=== PATIENT | female | born 1990 | race Caucasian/White ===

== ENCOUNTER 2017-09-25 06:12 | Inpatient (IN) | payer OTHER ==
[2017-09-25] VITALS (84 sets, daily range): BP systolic 78–143; BP diastolic 35–88; PULSE 69–125; RESP 0–20; TEMP 97.7–100.4
[~2017-09-25] VITALS: Ht 162.6 cm; Wt 93.0 kg
[2017-09-25] MEDS ORDERED: PRENTAB7 (07:34)
[2017-09-25] MEDS ORDERED: OXYTOCIN 30 UNITS/NS 500ML PREMIX IV SCH (07:45)
[2017-09-25 08:05] LABS: AUTOMATED NEUTROPHIL # 6.3 TH/MM3 (1.8-7.7); BASOPHIL % 0.3 % (0.0-2.0); EOSINOPHIL # 0.1 TH/MM3 (0-0.4); EOSINOPHIL % 0.9 % (0.0-4.0); HEMATOCRIT 36.5 % (35.0-46.0); HEMO FLAGS DIFF FINAL; LYMPH % 20.3 % (9.0-44.0); LYMPHOCYTE # 1.8 TH/MM3 (1.0-4.8); MEAN CELL VOLUME 91.4 FL (80.0-100.0); MEAN CORPUSCULAR HEMOGLOBIN 30.9 PG (27.0-34.0); MEAN CORPUSCULAR HGB CONC 33.8 % (32.0-36.0); MONO % 7.9 % (0.0-8.0); NEUT % 70.6 % (16.0-70.0); PLATELET COUNT 254 TH/MM3 (150-450); RED BLOOD COUNT 3.99 MIL/MM3 (4.00-5.30); WHITE BLOOD COUNT 8.9 TH/MM3 (4.0-11.0)
[2017-09-25 08:11] LABS: BACTERIA, URINE OCC /hpf; BLOOD, URINE NEG (NEG); CALCIUM OXALATE CRYSTALS,URINE MOD /hpf; GLUCOSE,URINE NEG (NEG); HYALINE CAST, URINE 3 /lpf (RARE); KETONE, URINE TRACE mg/dL (NEG); MUCUS URINE FEW /lpf (OCC); NITRITE,URINE NEG (NEG); PH, URINE 5.5 (5.0-8.5); SQUAMOUS EPITHELIAL CELL URINE 4 /hpf (0-5); URINE COLOR YELLOW (YELLW/STRAW)
[2017-09-25 08:12] LABS: COMMENT (UR) CULT NOT INDICATED; CULTURE IF INDICATED CULT NOT INDICATED
[2017-09-25] MEDS ORDERED: LACTATED RINGER'S 1000 ML BOLUS IV PRN (08:30)
[2017-09-25] MEDS ORDERED: LIDOCAINE HCL 1% 50 ML VIAL INFIL PRN (08:30)
[2017-09-25] MEDS ORDERED: ONDANSETRON HCL 4 MG/2 ML VIAL IV PUSH PRN (08:30)
[2017-09-25] MEDS ORDERED: NS 500 ML BOLUS IV PRN (08:30)
[2017-09-25] MEDS ORDERED: LACTATED RINGER'S 1000 ML IV SCH (08:30)
[2017-09-25] MEDS ORDERED: LIDOCAINE HCL 1% 50 ML VIAL I-DERMAL PRN (08:30)
[2017-09-25] MEDS ORDERED: OXYTOCIN 30 UNITS 500ML PREMIX IV ONE (08:30)
[2017-09-25] MEDS ORDERED: NS 1000 ML IV PRN (08:30)
[2017-09-25] MEDS ORDERED: MINERAL OIL 10 ML VIAL TOPICAL PRN (08:30)
[2017-09-25] MEDS ORDERED: CITRIC ACID-SODIUM CITRATE LIQ 30 ML UDC PO SCH (08:30)
--- NOTE | 2017-09-25 08:42 | PD.LABORPN ---
Subjective Subjective pt comfortable Objective Vital Signs Vital Signs Date Time Temp Pulse Resp B/P (MAP) Pulse Ox O2 Delivery O2 Flow Rate FiO2 09/25/17 06:45 90 122/71 (88) Objective Pelvic Exam: Cervix: [-] Dilatation: [-] 4 Effacement: [-] 70 Station: [-] -1 Presentation: [-] Membranes: [intact or ruptured] arom clear Uterine Contractions: [-] FHT's: Category: [-] 1 Baseline: [-] Reactive: [-] R Variability: [-] Decels: [-] Weeks Gestation: 39 Gest Age Assessed Date: Sep 25, 2017 Gest Age Assessed Time: 08:40 Pt started active labor?: No Medical induction of labor?: Yes Medical induction start date: Sep 25, 2017 Medical induction start time: 08:40 Artificial rupture of membrane: Yes Artificial ROM date: Sep 25, 2017 Artifical ROM time: 08:41 Assessment/Plan Problem List: (1) state, incidental ICD Codes: Z33.1 - state, incidental Assessment and Plan P0 at 39wks, for IOL, favorable cervix s/p arom clear, start pit, epid prn anticipate Shiloh Stiles MD Sep 25, 2017 08:41
[2017-09-25] MEDS ORDERED: fentaNYL 2MCG-BUPIV 0.125% INJ 100 ML ONE (10:18)
[2017-09-25] MEDS ORDERED: ePHEDrine/NS 25 MG/5 ML SYRINGE ONE ×2 (10:19→12:10)
--- NOTE | 2017-09-25 14:55 | MH ---
cc: RAMA AMADO DATE OF ADMISSION: 09/25/2017 REASON FOR ADMISSION 39-weeks with favorable cervix for artificial rupture of membranes and induction as needed. HISTORY OF PRESENT CONDITION The patient is a 26-year-old white female, 1, para 0 with LMP 12/26 and EDC 10/02/2017, who will be 39 weeks on September 25. Her care has been unremarkable. She has had no hypertension, diabetes or labor. Her booking blood pressure was 110/68 and it was 140/78 this last visit. She is 4 cm, 80% and minus one station. She has no chronic or systemic illnesses. She does not smoke, drink or use illicit drugs. Her blood type is A+. Her hemoglobin was 12.2. Her Pap smear was normal. She is immune to [place] measles and chickenpox. Serology was negative and hep C specifically was negative and thyroid is normal. Her 28-week sugar test was 66 and her Group B strep was negative. FAMILY HISTORY Noncontributory. PHYSICAL EXAMINATION GENERAL: She is a well-developed, well-nourished white female in no acute distress. VITAL SIGNS: Afebrile. Stable vital signs. 140/78. Weight 209. Urine dip negative. NECK: She has no thyroid enlargement. LUNGS: Lungs are clear. HEART: Heart is regular. PELVIC: Fundus is term. Estimated weight is 7-1/2 pounds. She has no CVA tenderness. The perineum is estrogenized. The cervix is 4 cm, 80% zero station. Estimated weight is 7 pounds. Pelvis is clinically adequate. EXTREMITIES: Unremarkable. IMPRESSION Term intrauterine with a good Edward score, desirous of labor and delivery prior to the holiday. She has been appraised of the benefits of natural initiation of labor versus induction, risks, benefits and alternative, she is comfortable with her choice and has decided to proceed on Monday at [place]. Rama Amado MD PPC/TLL /2:35 PM /2:49 PM
[2017-09-25] MEDS ORDERED: NO SYSTEM NARCOTICS PRN (15:00)
[2017-09-25] MEDS ORDERED: DO NOT ADMINISTER ANTICOAGULANTS PRN (15:00)
[2017-09-25] MEDS ORDERED: fentaNYL 2MCG-BUPIV 0.125% 100 ML EPIDURAL SCH (15:00)
[2017-09-25] MEDS ORDERED: MEASLES, MUMPS, RUBELLA VACCINE 0.5 ML VIAL SQ ONE (16:00)
[2017-09-25] MEDS ORDERED: DIPHTH/TETANUS/ACEL PERTUSSIS (BOOSTER) 0.5 ML VIAL/PFS IM ONE (16:00)
--- NOTE | 2017-09-25 18:41 | PD.OB.DELI ---
Weeks gestation: 39 Gest age assessed date: Sep 25, 2017 Gest age assessed time: 08:40 Pt started active labor?: No Medical induction of labor?: Yes Medical induction start date: Sep 25, 2017 Medical induction start time: 08:40 Artificial rupture of membrane: Yes Artificial ROM date: Sep 25, 2017 Artifical ROM time: 08:41 Anesthesia: Epidural, Lidocaine local to perineum Episiotomy: None Vaginal Delivery: Normal, Spontaneous Presentation: Occiput anterior Nuchal Cord: x1 (tight, unable to deliver through, double clamped and cut at perineum prior to delivery of baby) Delayed cord clamping (45 sec): No : Female, Single Delivery date: Sep 25, 2017 Delivery time: 18:18 One Minute : 8 Five Minute : 9 Weight: 3130 Placenta: Spontaneous delivery, Intact Laceration: Vaginal laceration Repair: Vicryl running Estimated blood loss: 250 Additional Information I was called to bedside for 10/100/+3 and voicemail/text left for Dr. Stiles. We began pushing. Dr. Stiles called and en route. She arrived after delivery of placenta just before repair was performed. Taylor Garcia MD Sep 25, 2017 18:41
[2017-09-25] MEDS ORDERED: OXYTOCIN 30 UNITS-500ML PREMIX 500 ML IV SCH (18:45)
[2017-09-25] MEDS ORDERED: ONDANSETRON ODT 4 MG TAB PO PRN (18:45)
[2017-09-25] MEDS ORDERED: DOCUSATE SODIUM 50 MG/SENNA 8.6 MG TAB PO PRN (18:45)
[2017-09-25] MEDS ORDERED: SODIUM CHLORIDE 0.9% FLUSH 10 ML FLUSH IV FLUSH PRN (18:45)
[2017-09-25] MEDS ORDERED: ZOLPIDEM TARTRATE 5 MG TAB PO PRN (18:45)
[2017-09-25] MEDS ORDERED: oxyCODONE/ACETAMINOPHEN 5 MG/325 MG TAB PO PRN (18:45)
[2017-09-25] MEDS ORDERED: ACETAMINOPHEN 325 MG TAB PO PRN (18:45)
[2017-09-25] MEDS ORDERED: ALUMINUM/MAGNESIUM/SIMETH 30 ML CUP PO PRN (18:45)
[2017-09-25] MEDS: ePHEDrine/NS 25 MG/5 ML SYRINGE IV PUSH PRN (19:05)
[2017-09-25] MEDS: IBUPROFEN 800 MG TAB PO PRN ×2 (19:49→20:49)
[2017-09-25] MEDS: SODIUM CHLORIDE 0.9% FLUSH 10 ML FLUSH IV FLUSH SCH (21:15)
[2017-09-25] MEDS: WITCH HAZEL 50%/GLYCERIN 12.5% 40 PAD JAR TOPICAL PRN (22:44)
[2017-09-25] MEDS: BENZOCAINE 20% TOPICAL SPRAY 60 ML CAN TOPICAL PRN (22:44)
--- NOTE | 2017-09-26 07:14 | HHI.OB ---
Subjective Post Day: 1 Remarks delivered by laborist due to rapid doing well nursing Objective Vitals/I&O Vital Signs Date Time Temp Pulse Resp B/P (MAP) Pulse Ox O2 Delivery O2 Flow Rate FiO2 09/25/17 21:45 103 20 133/76 (95) 09/25/17 21:45 99.4 09/25/17 20:55 98 126/76 (93) 09/25/17 20:49 18 09/25/17 20:49 18 09/25/17 20:45 99.8 09/25/17 20:45 18 09/25/17 19:45 100.4 09/25/17 19:43 18 09/25/17 19:30 18 09/25/17 19:30 125 09/25/17 19:30 114/71 (85) 09/25/17 19:15 17 09/25/17 19:15 108 127/70 (89) 09/25/17 19:01 103 132/65 (87) 09/25/17 19:00 18 09/25/17 18:45 0 09/25/17 18:45 106 139/75 (96) 09/25/17 18:31 110 139/60 (86) 09/25/17 18:24 119 143/74 (97) 09/25/17 17:00 118 129/75 (93) 09/25/17 16:45 94 121/68 (85) 09/25/17 16:30 95 116/74 (88) 09/25/17 16:15 107 110/81 (91) 09/25/17 16:01 98 121/73 (89) 09/25/17 15:45 88 117/78 (91) 09/25/17 15:30 85 132/80 (97) 09/25/17 15:16 91 122/70 (87) 09/25/17 15:00 95 129/80 (96) 09/25/17 14:50 88 09/25/17 14:45 91 09/25/17 14:45 92 110/75 (87) 09/25/17 14:40 96 09/25/17 14:35 91 09/25/17 14:30 89 09/25/17 14:30 88 117/75 (89) 09/25/17 14:25 94 12/18/17 14:20 92 17 14:15 91 17 14:15 90 119/75 (90) 09/25/17 14:10 90 17 14:05 93 17 14:00 20 17 14:00 87 115/74 (88) 09/25/17 14:00 97.7 09/25/17 14:00 90 17 13:55 94 17 13:50 87 17 13:45 84 115/75 (88) 09/25/17 13:45 94 17 13:40 79 17 13:35 86 17 13:30 79 17 13:30 88 113/65 (81) 09/25/17 13:25 94 17 13:20 81 09/25/17 13:16 96 108/66 (80) 09/25/17 13:15 92 09/25/17 13:10 84 17 13:05 104 17 13:00 94 17 13:00 91 113/76 (88) 09/25/17 12:55 97.7 94 09/25/17 12:50 90 17 12:46 84 101/60 (74) 09/25/17 12:45 88 17 12:40 90 17 12:35 82 17 12:31 83 101/62 (75) 09/25/17 12:30 82 17 12:30 98.2 18 17 12:25 91 17 12:20 88 17 12:15 76 100/59 (73) 17 12:15 89 17 12:11 93 85/49 (61) 09/25/17 12:10 84 17 12:05 83 17 12:05 84 94/54 (67) 09/25/17 12:01 81 93/50 (64) 09/25/17 12:00 82 17 11:55 90 17 11:55 96 93/53 (66) 09/25/17 11:51 77 91/47 (62) 09/25/17 11:50 76 100/53 (69) 09/25/17 11:50 75 09/25/17 11:46 87 81/48 (59) 09/25/17 11:45 83 09/25/17 11:40 84 93/44 (60) 09/25/17 11:40 84 09/25/17 11:36 87 88/55 (66) 09/25/17 11:35 92 09/25/17 11:30 95 09/25/17 11:30 103 107/58 (74) 09/25/17 11:25 95 09/25/17 11:25 94 101/62 (75) 09/25/17 11:22 96 80/45 (57) 09/25/17 11:21 91 78/35 (49) 09/25/17 11:20 101 09/25/17 11:16 118 108/61 (77) 09/25/17 11:15 108 112/57 (75) 09/25/17 11:15 116 09/25/17 11:10 99 131/88 (102) 09/25/17 11:10 98 09/25/17 11:05 106 09/25/17 11:00 100 09/25/17 10:30 86 09/25/17 10:25 69 09/25/17 09:33 89 125/88 (100) 09/25/17 09:00 97.8 18 124/74 (91) 09/25/17 09:00 80 Objective Remarks GENERAL: Well-nourished, well-developed patient. CARDIOVASCULAR: Regular rate and rhythm without murmurs, gallops, or rubs. RESPIRATORY: Breath sounds equal bilaterally. No accessory muscle use. ABDOMEN/GI: Abdomen soft, non-tender. Fundus: Firm, non-tender at umbilicus. GENITOURINARY: Light to moderate bleeding. EXTREMITIES: No cyanosis or edema, non-tender, without signs of DVT. Medications and IVs Current Medications Medications (Trade) Dose Ordered Sig/Hyun Route Start Time Stop Time Status Last Admin (NS Flush) 2 ml BID IV FLUSH 09/25/17 21:00 09/25/17 21:15 (NS Flush) 2 ml UNSCH PRN IV FLUSH 09/25/17 18:45 (Tylenol) 650 mg Q4H PRN PO 09/25/17 18:45 09/25/17 19:49 (Motrin) 800 mg Q8H PRN PO 09/25/17 18:45 09/25/17 20:49 (Percocet 5-325 Mg) 1 tab Q4H PRN PO 09/25/17 18:45 (Americaine 20% Top Spr) 1 spray Q4H PRN TOPICAL 09/25/17 18:45 09/25/17 22:44 (Tucks Pads) 1 applic QID PRN TOPICAL 09/25/17 18:45 09/25/17 22:44 (Roxanne-Colace) 2 tab Q12H PRN PO 09/25/17 18:45 09/25/17 19:49 (Ambien) 5 mg HS PRN PO 09/25/17 18:45 (Mag-Al Plus Susp Liq) 15 ml Q8H PRN PO 09/25/17 18:45 (Zofran Odt) 4 mg Q6H PRN PO 09/25/17 18:45 Assessment/Plan Problem List: (1) state, incidental ICD Codes: Z33.1 - state, incidental Assessment and Plan antipcate discharge tomorrow unremarkable and post Luz Marina Lanier MD Sep 26, 2017 07:14
[2017-09-26] MEDS ORDERED: IBUP1TAB7 PO (07:15)
--- NOTE | 2017-09-26 07:15 | HHI.DCPOC ---
Discharge Care Plan Report Symptoms to Your Doctor -Temperature above 100.5 degrees -Redness, of incision or excessive or foul smelling drainage -Unusual pain or calf pain -Increased vaginal bleeding -Painful or difficulty urinating -Feelings of extreme sadness or anxiety after 2 weeks Goals to Promote Your Health * To prevent worsening of your condition and complications * To maintain your health at the optimal level Directions to Meet Your Goals Take your medications as prescribed Follow your dietary instruction Follow activity as directed Ensure plenty of rest for recovery Drink fluids for hydration Keep your appointments as scheduled Take your immunizations and boosters as scheduled If your symptoms worsen call your PCP, if no PCP go to Urgent Care Center or Emergency Room Smoking is Dangerous to Your Health. Avoid second hand smoke Call the 24-hour crisis hotline for domestic abuse at Luz Marina Lanier MD Sep 26, 2017 07:15
[2017-09-26 08:00] VITALS: BP 118/79; PULSE 80; RESP 18; TEMP 98.4; O2SAT 96
[2017-09-26] MEDS: IBUPROFEN 800 MG TAB PO PRN ×2 (12:17→22:28)
[2017-09-26] MEDS: BENZOCAINE 20% TOPICAL SPRAY 60 ML CAN TOPICAL PRN (19:22)
[2017-09-26] MEDS: WITCH HAZEL 50%/GLYCERIN 12.5% 40 PAD JAR TOPICAL PRN (19:22)
[2017-09-26 20:00] VITALS: BP 140/88; PULSE 82; RESP 18; TEMP 98.3
[2017-09-26] MEDS: SODIUM CHLORIDE 0.9% FLUSH 10 ML FLUSH IV FLUSH SCH (21:17)
[2017-09-27 08:00] VITALS: BP 142/80; PULSE 56; RESP 14; TEMP 97.7
[2017-09-27] MEDS ORDERED: INFLUENZA VIRUS VACCINE (QUADRIVALENT) 0.5 ML SYR IM ONE (09:00)
[2017-09-27] MEDS: IBUPROFEN 800 MG TAB PO PRN (09:32)
[2017-09-27] MEDS: WITCH HAZEL 50%/GLYCERIN 12.5% 40 PAD JAR TOPICAL PRN (13:22)
[2017-09-27] MEDS: BENZOCAINE 20% TOPICAL SPRAY 60 ML CAN TOPICAL PRN (13:22)
--- NOTE | 2017-09-27 13:40 | HHI.OB ---
Subjective Post Day: 2 Remarks ppd#2, STABLE Objective Vitals/I&O Vital Signs Date Time Temp Pulse Resp B/P (MAP) Pulse Ox O2 Delivery O2 Flow Rate FiO2 09/27/17 08:00 97.7 56 14 142/80 (100) 09/26/17 20:00 98.3 09/26/17 20:00 82 18 140/88 (105) Objective Remarks GENERAL: Well-nourished, well-developed patient. CARDIOVASCULAR: Regular rate and rhythm without murmurs, gallops, or rubs. RESPIRATORY: Breath sounds equal bilaterally. No accessory muscle use. ABDOMEN/GI: Abdomen soft, non-tender. Fundus: Firm, non-tender at umbilicus. GENITOURINARY: Light to moderate bleeding. EXTREMITIES: No cyanosis or edema, non-tender, without signs of DVT. Medications and IVs Current Medications Medications (Trade) Dose Ordered Sig/Hyun Route Start Time Stop Time Status Last Admin (NS Flush) 2 ml BID IV FLUSH 09/25/17 21:00 09/25/17 21:15 (NS Flush) 2 ml UNSCH PRN IV FLUSH 09/25/17 18:45 (Tylenol) 650 mg Q4H PRN PO 09/25/17 18:45 09/25/17 19:49 (Motrin) 800 mg Q8H PRN PO 09/25/17 18:45 09/27/17 09:32 (Percocet 5-325 Mg) 1 tab Q4H PRN PO 09/25/17 18:45 (Americaine 20% Top Spr) 1 spray Q4H PRN TOPICAL 09/25/17 18:45 09/27/17 13:22 (Tucks Pads) 1 applic QID PRN TOPICAL 09/25/17 18:45 09/27/17 13:22 (Roxanne-Colace) 2 tab Q12H PRN PO 09/25/17 18:45 09/25/17 19:49 (Ambien) 5 mg HS PRN PO 09/25/17 18:45 (Mag-Al Plus Susp Liq) 15 ml Q8H PRN PO 09/25/17 18:45 (Zofran Odt) 4 mg Q6H PRN PO 09/25/17 18:45 Assessment/Plan Problem List: (1) state, incidental ICD Codes: Z33.1 - state, incidental Assessment and Plan PPD#2, cleared for discharge, RTO 6 weeks Discharge Planning routine Chris Nam MD Sep 27, 2017 13:40
== END 2017-09-27 14:33 | disposition home or self-care (01) | DRG 775 ==
LOC: H2EB 06:12 → H1EA 21:22
PROVIDERS: ADMIT Obstetrics & Gynecology; ATTEND Obstetrics & Gynecology
PROC: 10E0XZZ Delivery of Products of Conception, External Approach (ICD-10-PCS; principal; 2017-09-25)
PROC: 0HQ9XZZ Repair Perineum Skin, External Approach (ICD-10-PCS; 2017-09-25)
PROC: 10907ZC Drainage of Amniotic Fluid, Therapeutic from Products of Conception, Via Natural or Artificial Opening (ICD-10-PCS; 2017-09-25)
PROC: 3E0P3VZ Introduction of Hormone into Female Reproductive, Percutaneous Approach (ICD-10-PCS; 2017-09-25)
PROC: 3E0R3BZ Introduction of Anesthetic Agent into Spinal Canal, Percutaneous Approach (ICD-10-PCS; 2017-09-25)
PROC: 00HU33Z Insertion of Infusion Device into Spinal Canal, Percutaneous Approach (ICD-10-PCS; 2017-09-25)
DX: O75.89 Other specified complications of labor and delivery (principal); O69.1XX0 Labor and delivery complicated by cord around neck, with compression, not applicable or unspecified; O70.0 First degree perineal laceration during delivery; Z37.0 Single live birth; Z3A.39 39 weeks gestation of pregnancy; Z23 Encounter for immunization
CPT/HCPCS: 59025; 80307; 81001; 85025; 86900; 86901; 90686; 90715; J2590; J3010; J7120; Q2038